=== PATIENT | male | born 1965 | race Hispanic/Latino ===

== ENCOUNTER 2017-03-11 07:36 | Outpatient (CLI) | payer OTHER ==
[2017-03-11] MEDS ORDERED: Iopamidol 370 76% 100 ML VIAL ONE (13:02)
== END 2017-03-11 07:37 | disposition home or self-care (01) ==
LOC: BICCT 07:36
PROVIDERS: ATTEND Family Medicine
DX: N26.1 Atrophy of kidney (terminal) (principal); N20.0 Calculus of kidney; K76.0 Fatty (change of) liver, not elsewhere classified
CPT/HCPCS: 74175

== ENCOUNTER 2017-08-17 13:00 | Outpatient (CLI) | payer OTHER ==
[2017-08-17 09:44] LABS: #Basophils 0.1 thou/uL (0.0-0.2); #Eosinphils 0.3 thou/uL (0.0-0.7); #Lymphocytes 2.2 thou/uL (1.20-3.40); #Monocytes 0.6 thou/uL (0.11-0.59); #Neutrophils 4.7 thou/uL (1.40-6.50); %Basophils 1.1 % (0.0-1.0); %Eosinophils 3.2 % (0.0-10.0); %Lymphocytes 28.1 % (21.0-51.0); %Neutrophils 59.6 % (42.0-75.0); Hemoglobin 16.7 g/dL (14.0-18.0); Mean Corpuscular HGB CONC 35.2 g/dL (32.0-36.0); Mean Corpuscular Hemoglobin 31.2 pg (27.0-31.0); Mean Corpuscular Volume 88.5 fL (78.0-98.0); Mean Platelet Volume 7.8 fL (7.4-10.4); Platelet Count 231 thou/uL (130-400); RBC Distribution Width 12.5 % (11.5-14.5); Red Blood Cell (RBC) Count 5.35 mill/uL (4.70-6.10); White Blood Cell (WBC) Count 7.9 thou/uL (4.8-10.8)
== END 2017-08-17 13:01 ==
LOC: LABBT 13:00
PROVIDERS: ATTEND Orthopaedic Surgery
DX: Z01.812 Encounter for preprocedural laboratory examination (principal); G56.02 Carpal tunnel syndrome, left upper limb
CPT/HCPCS: 85025

== ENCOUNTER 2017-08-18 05:59 | Day surgery (SDC) | payer OTHER ==
[2017-08-17 08:40] VITALS: BMI 29.9
[2017-08-18] MEDS ORDERED: CEFAZOLIN/Water 2 GM/20 ML SYRINGE ONE (06:29)
[2017-08-18] MEDS ORDERED: Lidocaine 1% (PF) 30 ML VIAL ONE (06:36)
[2017-08-18] MEDS ORDERED: Midazolam HCl 2 mg/2 ml Vial ONE (07:18)
[2017-08-18] MEDS ORDERED: Fentanyl 100 MCG/2 ML VIAL ONE (07:36)
[2017-08-18] MEDS ORDERED: Lidocaine 2% Jelly 5 ML TUBE ONE (07:36)
--- NOTE | 2017-08-18 08:44 | OP ---
DATE OF PROCEDURE: 08/18/2017. PREOPERATIVE DIAGNOSIS: Left-sided carpal tunnel syndrome. POSTOPERATIVE DIAGNOSIS: Left-sided carpal tunnel syndrome. PROCEDURE PERFORMED: 1. Left open carpal tunnel release. 2. Placement of short volar splint left upper extremity. SURGEON: Piyush Momin M.D. LOOM SETTER FOURDRINIER: None. BLOOD LOSS: Minimal. COMPLICATIONS: None. ANESTHESIA: He had a TIVA with local. DISPOSITION: He went to Day [facility] in stable condition. INDICATIONS: Fausto is an active 51-year-old male who has confirmed carpal tunnel syndrome by [facility]. He wished to have his left-sided carpal tunnel syndrome treated by open carpal tunnel release. DESCRIPTION OF PROCEDURE: After all appropriate consent forms were explained and signed, the patient was taken back to the operating room and at this time was given IV sedation. A well-padded tourniqu et was placed on the left arm and the arm was then prepped and draped in the standard surgical fashio n. The incision was then drawn out and infiltrated with plain lidocaine. Limb was exsanguinated and tourniquet taken up to 250 mmHg. At this time, using Loupe magnification, a 15 blade was used to in cise down through skin. Bipolar cautery was used to coagulate any brisk venous bleeding. We then pl aced a small hemostat to protect the underlying median nerve and transected the transverse carpal lig ament using multiple 15 blades as well as scissors. Once this was done, a small finger was inserted to palpate for any remaining bands. At this time, a moist Ray-Leonidas sponge was placed into the wound. Tourniquet was let down and pressure was held. Bipolar cautery used to coagulate any brisk venous b leeding. The wound was then irrigated with saline solution and we then evaluated the nerve. The ner ve was found to be significantly injected, the nerve was intact, there were no masses noted, and the underlying flexor tendons were in good condition. At this time, we irrigated and dried the wound. W e then placed multiple nylon stitches to close the incision. A bulky sterile hand dressing and a sma ll volar splint were then made. The patient was then awakened and taken to recovery in stable condit ion. All counts were correct at the end of the case. The patient received preoperative IV antibioti cs.
[2017-08-18] MEDS ORDERED: PHENYLEPHRINE-NS 100 MCG/ML 10 ML SYRINGE ONE (14:41)
[2017-08-18] MEDS ORDERED: PROPOFOL 200 MG/20 ML VIAL ONE (14:41)
== END 2017-08-18 09:30 | disposition home or self-care (01) ==
LOC: SDC 05:59
PROVIDERS: ATTEND Orthopaedic Surgery
PROC: 01N50ZZ Release Median Nerve, Open Approach (ICD-10-PCS; principal; 2017-08-18)
DX: G56.02 Carpal tunnel syndrome, left upper limb (principal); E11.9 Type 2 diabetes mellitus without complications; E78.00 Pure hypercholesterolemia, unspecified; G47.33 Obstructive sleep apnea (adult) (pediatric); Z79.899 Other long term (current) drug therapy
CPT/HCPCS: 36416; J2001; J2250; J2704; J3010